=== PATIENT | female | born 1950 | race Caucasian/White ===

== ENCOUNTER → 2018-07-22 | Outpatient (CLI) | payer MEDICARE ==
[~2018-07-22] MED LIST: /WARF25TA OR; ABIL10TA9 PO; ABIL1TAB13 PO; ALBU17IN INH; AMBI10TA PO; AMLO5TAB6 PO; AMLODIPINE BESYLATE PO; BACITAB PO; CALCIUM CITRATE; CENTTAB47 PO; COUM2.5T17 PO; EFFE150C PO; EFFE150C2 PO; ESTRACE PO; FLEXARIL PO; GLUCOSAMINE/CHRONDIT; HCTZ PO; HYDR12.55 PO; HYDR7.5T66 PO; HYDROCODONE; IBUPROFEN; MOBI4TAB PO; MULTIVIT PO; OXYC10TA97 OR; PAIN325T PO; PERC5TAB12 PO; PERC5TAB8 OR; PREDPOW10 PO; PREV1CAP PO; PREVACID PO; SYMB80INH INH; TEMO0.0520 TOP; TERAZOL VAGINALLY; THERGRAN; TRAZ-160 PO; TYLE325T5 PO; VENL150C43 PO; VENTOLIN INH; VICO5TAB; VICOTAB4 PO; VIOXX25 PO; VITA100066 PO; XANAX PO; ZOLOFT100 PO; ZYRTEC PO; [UNRECOGNIZED DRUG - CODE] PO; [UNRECOGNIZED DRUG - OTHER]; [UNRECOGNIZED DRUG - OTHER] INH
[2018-07-22 18:35] LABS: BASO # 0.1 10^3/uL (0.0-0.2); BASO % 0.8 % (0.0-1.0); EOS # 0.8 10^3/uL (0.0-0.50); EOS % 9.5 % (0.0-3.0); HEMATOCRIT 42.5 % (36.0-47.0); LYMPH # 3.6 10^3/uL (1.5-4.5); LYMPH % 41.2 % (24.0-44.0); MEAN CORPUSCULAR HGB CONC 32.9 g/dl (32.0-36.5); MEAN CORPUSCULAR VOLUME 100.2 fl (80.0-96.0); MONO # 0.6 10^3/uL (0.0-0.8); MONO % 6.7 % (0.0-5.0); NEUTROPHILS # 3.7 10^3/uL (1.8-7.7); NEUTROPHILS % 41.6 % (36.0-66.0); PLATELET COUNT, AUTOMATED 280 10^3/uL (150-450); RED BLOOD COUNT 4.24 10^6/uL (4.00-5.40); WHITE BLOOD COUNT 8.8 10^3/uL (4.0-10.0)
[2018-07-26 14:38] LABS: D001-IgE D pteronyssinus 0.42 kU/L (Class I); E001-IgE Cat Epith/Dander 5.87 kU/L (Class IV); M001-IgE Penicillium chrysogen < 0.10 kU/L (Class 0); M002 IgE Cladosporium herbaru < 0.10 kU/L (Class 0); M003 IgE Aspergillus fumigatu 0.16 kU/L (Class 0/I); M006-IgE Alternaria alternata < 0.10 kU/L (Class 0); T003-IgE Common Silver Birch 0.17 kU/L (Class 0/I); T006-IgE Cedar, Mountain 0.19 kU/L (Class 0/I); T008-IgE Elm, American 0.32 kU/L (Class I); T015-IgE Ash, White 2.36 kU/L (Class III); T041-IgE Hickory, White 0.25 kU/L (Class 0/I); T070-IgE White Mulberry 0.16 kU/L (Class 0/I); W001-IgE Ragweed, Short 9.48 kU/L (Class IV); W009-IgE Plantain, English 0.58 kU/L (Class II); W014-IgE Pigweed, Rough 0.22 kU/L (Class 0/I); W018-IgE Sheep Sorrel 0.45 kU/L (Class I)
== END ==
LOC: M SMT 14:28
PROVIDERS: ATTEND Physician Assistant
DX: J45.40 Moderate persistent asthma, uncomplicated (principal)

== ENCOUNTER → 2022-04-23 | Outpatient (CLI) | payer MEDICARE ==
[~2022-04-23] MED LIST changes: -/WARF25TA OR; +AMLO1TAB24 PO; -AMLO5TAB6 PO; +COUM1TAB18 OR; +HYDR-4278 PO; -HYDR7.5T66 PO; -TRAZ-160 PO; +TRAZ-252 PO
[2022-04-23 11:32] LABS: HEMATOCRIT 38.1 % (36.0-47.0); MEAN CORPUSCULAR HGB CONC 34.1 g/dl (32.0-36.5); MEAN CORPUSCULAR VOLUME 99.7 fl (80.0-96.0); PLATELET COUNT, AUTOMATED 295 10^3/uL (150-450); RED BLOOD COUNT 3.82 10^6/uL (4.00-5.40); WHITE BLOOD COUNT 7.7 10^3/uL (4.0-10.0)
[2022-04-23 11:44] LABS: INR 0.86; PROTHROMBIN TIME 11.9 SECONDS (12.5-14.5)
[2022-04-23 11:57] LABS: ERYTHROCYTE SEDIMENTATION RATE 28 mm/hr (0-30)
[2022-04-23 13:41] LABS: CHLORIDE LEVEL 98 MMOL/L (98-107); POTASSIUM SERUM 3.8 MMOL/L (3.5-5.1); SODIUM LEVEL 136 MMOL/L (136-145)
[2022-04-23 13:42] LABS: ALBUMIN 3.7 G/DL (3.2-5.2); CARBON DIOXIDE LEVEL 28 MMOL/L (20-31)
[2022-04-23 13:46] LABS: BLOOD UREA NITROGEN 10 MG/DL (9-23)
[2022-04-23 13:47] LABS: ALKALINE PHOSPHATASE 95 U/L (46-116); BILIRUBIN,TOTAL 0.4 MG/DL (0.3-1.2); CALCIUM LEVEL 9.4 MG/DL (8.3-10.6); GLUCOSE, FASTING 91 MG/DL (74-106)
[2022-04-23 13:48] LABS: TOTAL PROTEIN 6.9 G/DL (5.7-8.2)
[2022-04-23 13:49] LABS: ALT/SGPT 19 U/L (7.0-40); AST/SGOT 19 U/L (<34); CREATININE FOR GFR 0.54 MG/DL (0.55-1.30); GLOMERULAR FILTRATION RATE > 60.0 (>39)
== END ==
LOC: M RAD 09:49
PROVIDERS: ATTEND Orthopaedic Surgery
DX: M16.12 Unilateral primary osteoarthritis, left hip (principal); Z79.01 Long term (current) use of anticoagulants

== ENCOUNTER → 2022-06-04 | Outpatient (CLI) | payer MEDICARE ==
[2022-06-04 13:20] LABS: BASO # 0.1 10^3/uL (0.0-0.2); BASO % 1.1 % (0.0-1.0); EOS # 0.5 10^3/uL (0.0-0.5); EOS % 5.1 % (0.0-3.0); HEMATOCRIT 36.2 % (36.0-47.0); HEMOGLOBIN 11.8 g/dl (12.0-15.5); LYMPH % 31.6 % (24.0-44.0); MEAN CORPUSCULAR HGB CONC 32.6 g/dl (32.0-36.5); MEAN CORPUSCULAR VOLUME 101.1 fl (80.0-96.0); MONO # 0.8 10^3/uL (0.0-0.8); MONO % 8.6 % (2.0-8.0); NEUTROPHILS # 5.1 10^3/uL (1.5-8.5); NEUTROPHILS % 53.2 % (36.0-66.0); PLATELET COUNT, AUTOMATED 486 10^3/uL (150-450); RED BLOOD COUNT 3.58 10^6/uL (4.00-5.40); WHITE BLOOD COUNT 9.5 10^3/uL (4.0-10.0)
[2022-06-04 14:14] LABS: ERYTHROCYTE SEDIMENTATION RATE 79 mm/hr (0-30)
[2022-06-04 18:12] LABS: SOURCE, BODY FLUID GLUCOSE HIP LEFT
[2022-06-04 18:26] LABS: SOURCE, BODY FLUID LT HIP; SYNOVIAL FLUID COLOR RED (COLORLESS)
[2022-06-04 19:20] LABS: CRYSTALS, BODY FLUID NONE SEEN (NONE SEEN); SOURCE, BODY FLUID CRYSTALS LEFT HIP
== END ==
LOC: M LAB 11:57
PROVIDERS: ATTEND Orthopaedic Surgery
DX: M25.452 Effusion, left hip (principal)